=== PATIENT | female | born 1995 | race Two or more races ===

== ENCOUNTER 2021-07-31 01:51 | Emergency (ER) | payer MEDICAID ==
[~2021-07-31] VITALS: Ht 154.9 cm; Wt 65.0 kg
[2021-07-31 01:53] VITALS: BP 104/68
[2021-07-31] MEDS ORDERED: KETOROLAC 60MG/2ML VIAL IM ONE (02:15)
== END 2021-07-31 04:13 ==
LOC: ER 01:51
DX: S02.2XXA Fracture of nasal bones, initial encounter for closed fracture (principal); X58.XXXA Exposure to other specified factors, initial encounter; Y93.89 Activity, other specified; Y92.89 Other specified places as the place of occurrence of the external cause; Y99.8 Other external cause status
CPT/HCPCS: 70450; 70486; 96372; 99284; J1885